=== PATIENT | female | born 2000 | race Two or more races ===

== ENCOUNTER → 2024-12-02 | Emergency (ER) | payer BC ==
[~2024-12-02] VITALS: Ht 165.1 cm; Wt 103.4 kg
[~2024-12-02] MED LIST: 0.9 % SODIUM CHLORIDE 1,000 ML IV STA; ACETAMINOPHEN 500 MG GEL..CAP PO ONE; CEFTRIAXONE SODIUM 1,000 MG VIAL IV STA; CEFTRIAXONE SODIUM 1,000 MG VIAL ONE; VITATRUE COMBO1 EACH PO
[2024-12-02 23:14] LABS: PH,URINE 6.5 (5.0-8.0); URINE APPEARANCE Turbid; URINE BILIRRUBIN Negative (NEGATIVE); URINE BLOOD Large; URINE COLOR Yellow; URINE GLUCOSE Negative (NEGATIVE); URINE KETONE 15 (NEGATIVE); URINE LEUKOCYTE Large; URINE NITRATE Positive; URINE UROBILINOGEN 0.2 E.U./dl
[2024-12-02 23:19] LABS: URINE BACTERIA 5143.2 uL (0.0-1933); URINE CAST 2.06 uL (0.0-1.40); URINE EPITHELIAL CELLS 11.2 uL (0.0-38.8); URINE RBC 111.3 uL (0.0-20.8)
[2024-12-02 23:26] LABS: HEMATOCRIT 33.9 % (36.0-45.00); MEAN CELL VOLUME 79.6 fL (80.00-100.00); MEAN CORPUSCULAR HEMOGLOBIN 26.4 pg (27.00-32.0); MEAN CORPUSCULAR HGB CONC 33.2 g/dl (32.0-36.0); PLATELET COUNT 190 K/uL (150-450); RED BLOOD COUNT 4.27 M/uL (4.00-6.00); RED CELL DISTRIBUTION WIDTH 13.8 % (11.5-14.5)
[2024-12-02 23:39] LABS: HEMOGLOBIN 11.3 g/dL (12.0-15.00)
[2024-12-02 23:57] LABS: URINE PROTEIN 100 (NEGATIVE); URINE WBC > 5548.3 uL (0.0-23.2)
[2024-12-02 23:59] LABS: URINE MUCUS SCANT
[2024-12-03 02:55] LABS: MEAN CELL VOLUME 78.5 fL (80.00-100.00); MEAN CORPUSCULAR HEMOGLOBIN 26.7 pg (27.00-32.0); MEAN CORPUSCULAR HGB CONC 33.9 g/dl (32.0-36.0); PLATELET COUNT 169 K/uL (150-450); RED BLOOD COUNT 4.07 M/uL (4.00-6.00); RED CELL DISTRIBUTION WIDTH 13.7 % (11.5-14.5)
[2024-12-03 03:05] LABS: ALBUMIN 2.6 gm/dL (3.4-5.0); BILIRUBIN TOTAL 0.58 mg/dL (0.3-1.2); CALCIUM 8.4 mg/dL (8.5-10.1); CREATININE SERUM 0.85 mg/dL (0.55-1.02); GFR 81.49; GLOBULINA 3.4 G/DL (2.4-3.5); POTASSIUM 3.31 mEq/L (3.5-5.1)
[2024-12-03 03:14] LABS: HEMOGLOBIN 10.9 g/dL (12.0-15.00)
== END | disposition left against medical advice (07) ==
LOC: ER 20:35
PROVIDERS: Emergency Medicine; General Practice
DX: I95.89 Other hypotension (principal); R10.2 Pelvic and perineal pain